=== PATIENT | female | born 1945 | race African-American/Black ===

== ENCOUNTER 2017-07-06 16:46 | Emergency (ER) | payer MEDICARE, MEDICAID ==
[2017-07-06 17:08] LABS: Base Excess -2.8 mEq/L (-2 - +2); pH (venous) 7.31 (7.35-7.45)
[2017-07-06 17:12] LABS: #Basophils 0.2 thou/uL (0.0-0.2); #Eosinphils 0.2 thou/uL (0.0-0.7); #Lymphocytes 1.4 thou/uL (1.20-3.40); #Neutrophils 4.3 thou/uL (1.40-6.50); %Basophils 2.5 % (0.0-1.0); %Eosinophils 2.8 % (0.0-10.0); %Lymphocytes 19.9 % (21.0-51.0); %Monocytes 14.5 % (0.0-10.0); %Neutrophils 60.3 % (42.0-75.0); Hemoglobin 12.3 g/dL (12.0-16.0); Mean Corpuscular HGB CONC 34.4 g/dL (32.0-36.0); Mean Corpuscular Hemoglobin 32.5 pg (27.0-31.0); Mean Corpuscular Volume 94.5 fl (81.0-99.0); Mean Platelet Volume 8.5 fL (7.4-10.4); Platelet Count 183 thou/uL (130-400); RBC Distribution Width 12.2 % (11.5-14.5); Red Blood Cell (RBC) Count 3.78 mill/uL (4.20-5.40); White Blood Cell (WBC) Count 7.1 thou/uL (4.8-10.8)
[2017-07-06 17:23] LABS: ALT (SGPT) 20 U/L (8-55); AST (SGOT) 18 U/L (5-34); Albumin 3.8 g/dL (3.4-4.8); Alkaline Phosphatase 82 U/L (40-150); Anion Gap 12 mmol/L (10-20); BUN (Urea Nitrogen) 11 mg/dL (9.8-20.1); Bilirubin, Total 0.3 mg/dL (0.2-1.2); Calc. Creatinine Clearance 0 mL/min (70-130); Calcium 9.2 mg/dL (7.8-10.44); Carbon Dioxide 26 mmol/L (23-31); Chloride 109 mmol/L (98-107); Estimated GFR-MDRD 53; Globulin 4.1 g/dL (2.4-3.5); Glucose 96 mg/dL (83-110); Potassium 3.4 mmol/L (3.5-5.1); Protein, Total 7.9 g/dL (6.0-8.3); Sodium 144 mmol/L (136-145)
[2017-07-06 17:25] LABS: CKMB 2.4 ng/mL (0-6.6); Troponin I 0.011 ng/mL (< 0.028)
[2017-07-06] MEDS ORDERED: predniSONE 20 MG TAB ONE (17:41)
--- NOTE | 2017-07-06 20:50 | RAD ---
PORTABLE CHEST 07/06/17 Comparison is made with the 04/01/16 study. Mild to moderate cardiomegaly is no different than before. The vessels seem slightly more prominent t torres previously. Given the symptoms of shortness of breath, some very early congestion may be present. There are no effusions or lobar infiltrates. The trachea is midline. IMPRESSION: Possible early congestive change. POS: HOME
== END 2017-07-06 18:10 | disposition home or self-care (01) ==
LOC: BURERS 16:46
DX: J44.9 Chronic obstructive pulmonary disease, unspecified (principal); J06.9 Acute upper respiratory infection, unspecified; I48.91 Unspecified atrial fibrillation; E78.5 Hyperlipidemia, unspecified; K21.9 Gastro-esophageal reflux disease without esophagitis; I11.0 Hypertensive heart disease with heart failure; I50.9 Heart failure, unspecified; I49.9 Cardiac arrhythmia, unspecified; F17.220 Nicotine dependence, chewing tobacco, uncomplicated; Z79.899 Other long term (current) drug therapy
CPT/HCPCS: 71010; 80053; 82553; 82805; 83880; 84484; 85025; 93005; J7506; J7620

== ENCOUNTER 2018-04-18 19:46 | Emergency (ER) | payer MEDICARE, MEDICAID | END 2018-04-18 20:05 | disposition home or self-care (01) | LOC: BURERS 19:46 | DX: J06.9 Acute upper respiratory infection, unspecified (principal); E78.5 Hyperlipidemia, unspecified; I10 Essential (primary) hypertension; J45.909 Unspecified asthma, uncomplicated; I50.9 Heart failure, unspecified; I48.91 Unspecified atrial fibrillation; K21.9 Gastro-esophageal reflux disease without esophagitis; F17.220 Nicotine dependence, chewing tobacco, uncomplicated; Z79.899 Other long term (current) drug therapy | CPT/HCPCS: 99283 ==

== ENCOUNTER 2018-05-05 10:13 | Emergency (ER) | payer MEDICARE, MEDICAID ==
[2018-05-05] MEDS ORDERED: HYDROcodone/Acetaminophen 10/325 mg Tablet ONE (11:23)
--- NOTE | 2018-05-05 16:34 | RAD ---
RIGHT HIP TWO VIEWS: 05/05/18 No fracture or areas of bony destruction was seen. The hip joint space seemed normal and the articula r surfaces are smooth. There is no arthritic change of significance. IMPRESSION: No significant finding. POS: HOME
--- NOTE | 2018-05-05 16:36 | RAD ---
RIGHT SHOULDER THREE VIEWS: 05/05/18 The views were not optimal but the best obtainable at the time. no fracture, dislocation, or AC joint widening was seen. There is some minor bony spurring in the AC joint. There is not much arthritic ch arminda in the glenohumeral joint. IMPRESSION: No acute finding. POS: HOME
== END 2018-05-05 11:00 | disposition home or self-care (01) ==
LOC: BURERS 10:13
DX: S43.401A Unspecified sprain of right shoulder joint, initial encounter (principal); M16.11 Unilateral primary osteoarthritis, right hip; K21.9 Gastro-esophageal reflux disease without esophagitis; X58.XXXA Exposure to other specified factors, initial encounter

== ENCOUNTER 2018-07-01 16:50 | Emergency (ER) | payer MEDICARE, OTHER ==
[2018-07-01] MEDS ORDERED: Ibuprofen 800 MG TAB ONE (17:36)
[2018-07-01 17:48] LABS: Bilirubin Negative (Negative); Clarity Clear (Clear); Glucose, Urine (Dipstick) Negative (Negative); Leukocyte Negative (Negative); Nitrite Negative (Negative); Protein, Urine (Dipstick) Negative (Neg-Trace); Specific Gravity, Urine 1.015 (1.005-1.030); Urobilinogen 0.2 mg/dL (0.2-1.0)
[2018-07-01 17:49] LABS: Blood, Urine Negative (Negative)
--- NOTE | 2018-07-01 22:50 | RAD ---
CHEST TWO VIEWS: 07/01/18 Comparison is made with a 07/08/17 study. The heart is mildly enlarged but no worse than before. There is no congestive change, pleural effusio n, or mediastinal widening. There is no edema. Faint calcification is seen in the aortic arch. The kimberlyn ngs are fully inflated and clear. There is no sign of pneumothorax. No fracture was seen, but signifi cant rib fractures would be easily missed on this study. If suspicion is high, dedicated rib films or CT would be needed to show more subtle injuries. IMPRESSION: No acute findings. POS: HOME
== END 2018-07-01 18:21 | disposition home or self-care (01) ==
LOC: BURERS 16:50
DX: S20.212A Contusion of left front wall of thorax, initial encounter (principal); S50.12XA Contusion of left forearm, initial encounter; J45.909 Unspecified asthma, uncomplicated; K21.9 Gastro-esophageal reflux disease without esophagitis; I10 Essential (primary) hypertension; F17.220 Nicotine dependence, chewing tobacco, uncomplicated; Z79.899 Other long term (current) drug therapy; W01.0XXA Fall on same level from slipping, tripping and stumbling without subsequent striking against object, initial encounter; Y93.01 Activity, walking, marching and hiking
CPT/HCPCS: 71046; 81003

== ENCOUNTER 2018-07-08 11:38 | Emergency (ER) | payer MEDICARE, OTHER ==
--- NOTE | 2018-07-08 16:24 | RAD ---
CHEST TWO VIEWS: 07/08/18 COMPARISON: Comparison is made with the 07/01/18 study. The heart remains normal in size and shows no interval change. the mediastinum has no widening or sh ift. There is a very slight bowing of trachea towards the left at the thoracic inlet but this is true even on 2016 films. No vascular congestion or edema was seen. The right lung base is slightly hazier than it was previously on the PA film, though I could not substantiate a definite infiltrate on the lateral view Subtle rib fractures would be easily missed on this study. IMPRESSION: Exam very similar to the prior study. Very slight increase in basilar haziness which may or may not b e significant. POS: HOME
== END 2018-07-08 13:30 | disposition home or self-care (01) ==
LOC: BURERS 11:38
DX: S22.32XA Fracture of one rib, left side, initial encounter for closed fracture (principal); J45.909 Unspecified asthma, uncomplicated; K21.9 Gastro-esophageal reflux disease without esophagitis; I10 Essential (primary) hypertension; F17.220 Nicotine dependence, chewing tobacco, uncomplicated; Z79.899 Other long term (current) drug therapy; W19.XXXA Unspecified fall, initial encounter
CPT/HCPCS: 71046; 93005; 94799

== ENCOUNTER 2018-11-10 20:17 | Emergency (ER) | payer MEDICARE, OTHER ==
[2018-11-10] MEDS ORDERED: Albuterol Sulfate 1.25 MG/3 ML NEB ONE (20:30)
[2018-11-10] MEDS ORDERED: AMOXicillin 250 MG CAP ONE (20:47)
[2018-11-10] MEDS ORDERED: predniSONE 20 MG TAB ONE (20:47)
--- NOTE | 2018-11-10 21:16 | RAD ---
PORTABLE CHEST: An AP portable film at 2030 shows cardiomegaly comparable to the 07/08/18 film. The upper lobe vessel s do seem mildly congested , however. No large effusions are seen. No lobar consolidations are apprec iated. Slight haziness over the lower lungs is thought to be due to the overlying soft tissues. IMPRESSION: Probable mild congestion. POS: HOME
== END 2018-11-10 21:15 | disposition home or self-care (01) ==
LOC: BURERS 20:17
DX: J06.9 Acute upper respiratory infection, unspecified (principal); J45.909 Unspecified asthma, uncomplicated; K21.9 Gastro-esophageal reflux disease without esophagitis; I10 Essential (primary) hypertension; F17.220 Nicotine dependence, chewing tobacco, uncomplicated; Z79.51 Long term (current) use of inhaled steroids; Z79.899 Other long term (current) drug therapy
CPT/HCPCS: 71045; 94640; J7512; J7620

== ENCOUNTER 2019-10-19 14:58 | Emergency (ER) | payer MEDICARE, MEDICAID ==
[2019-10-19] MEDS ORDERED: HYDROcodone/Acetaminophen 5/325 mg Tablet ONE (15:32)
[2019-10-19] MEDS ORDERED: Bacitracin 1 PK ONE (15:57)
== END 2019-10-19 16:05 | disposition home or self-care (01) ==
LOC: BURERS 14:58
DX: L60.0 Ingrowing nail (principal); K21.9 Gastro-esophageal reflux disease without esophagitis; I10 Essential (primary) hypertension; J45.909 Unspecified asthma, uncomplicated; F17.220 Nicotine dependence, chewing tobacco, uncomplicated; Z79.899 Other long term (current) drug therapy; Z79.51 Long term (current) use of inhaled steroids
CPT/HCPCS: 11750

== ENCOUNTER 2021-02-03 13:59 | Outpatient (CLI) | payer MEDICARE, MEDICAID | END 2021-02-03 14:00 | disposition home or self-care (01) | LOC: BURRAD 13:59 | PROVIDERS: ATTEND Nurse Practitioner Family | DX: M17.0 Bilateral primary osteoarthritis of knee (principal) ==

== ENCOUNTER 2022-02-10 12:07 | Emergency (ER) | payer MEDICARE, OTHER | END 2022-02-10 18:33 | disposition home or self-care (01) | LOC: BURERS 12:07 | DX: U07.1 COVID-19 (principal); I10 Essential (primary) hypertension; K21.9 Gastro-esophageal reflux disease without esophagitis | CPT/HCPCS: U0003; U0005 ==

== ENCOUNTER 2022-06-03 13:33 | Emergency (ER) | payer MEDICARE, OTHER ==
[~2022-06-03 13:33] MED LIST: Fentanyl 100 MCG/2 ML VIAL ONE; PROPOFOL 200 MG/20 ML VIAL ONE; Rocuronium Bromide 10 MG/ML (10ML VIAL) ONE
[2022-06-03 13:45] LABS: #Basophils 0.1 thou/uL (0.0-0.2); #Eosinphils 0.1 thou/uL (0.0-0.7); #Lymphocytes 2.9 thou/uL (1.20-3.40); #Monocytes 0.7 thou/uL (0.11-0.59); #Neutrophils 4.1 thou/uL (1.40-6.50); %Basophils 1.4 % (0.0-1.0); %Eosinophils 1.5 % (0.0-10.0); %Lymphocytes 36.8 % (21.0-51.0); %Monocytes 9.2 % (0.0-10.0); %Neutrophils 51.1 % (42.0-75.0); Hemoglobin 14.8 g/dL (12.0-16.0); Mean Corpuscular HGB CONC 33.2 g/dL (32.0-36.0); Mean Corpuscular Hemoglobin 30.9 pg (27.0-31.0); Mean Corpuscular Volume 93.1 fl (78.0-98.0); Mean Platelet Volume 10.1 fL (7.4-10.4); Platelet Count 214 10x3/uL (130-400); RBC Distribution Width 12.6 % (11.5-14.5); Red Blood Cell (RBC) Count 4.79 mill/uL (4.20-5.40)
[2022-06-03] MEDS ORDERED: niCARdipine 25 MG/10 ML VIAL ONE (13:57)
[2022-06-03 14:05] LABS: PTT 31.4 sec (22.9-36.1); Prothrombin Time 13.7 sec (12.0-14.7)
[2022-06-03 14:06] LABS: ALT (SGPT) 29 U/L (8-55); AST (SGOT) 36 U/L (5-34); Acetaminophen Less than 10.0 mcg/mL (10.0-30.0); Albumin 3.8 g/dL (3.4-4.8); Alcohol Less than 10 mg/dL (Less than 10); Alkaline Phosphatase 89 U/L (40-110); Anion Gap 16 mmol/L (10-20); BUN (Urea Nitrogen) 11 mg/dL (9.8-20.1); Bilirubin, Total 0.4 mg/dL (0.2-1.2); CRP (Inflammatory) 0.67 mg/dL (= or < 0.5); Calc. Creatinine Clearance 0 mL/min (70-130); Calcium 9.5 mg/dL (7.8-10.44); Carbon Dioxide 25 mmol/L (23-31); Chloride 105 mmol/L (98-107); Estimated GFR 56; Glucose 121 mg/dL (83-110); Potassium 3.1 mmol/L (3.5-5.1); Protein, Total 7.8 g/dL (5.8-8.1); Salicylate Less than 8.0 mg/dL (15.0-30.0); Sodium 143 mmol/L (136-145)
== END 2022-06-03 14:25 | disposition short-term general hospital (02) ==
LOC: BURERS 13:33
DX: S01.01XA Laceration without foreign body of scalp, initial encounter (principal); W07.XXXA Fall from chair, initial encounter
CPT/HCPCS: 31500; 51702; 70450; 72125; 80053; 80307; 82550; 83605; 83880; 84443; 84484; 85025; 85610; 85730; 86140; 94760; 96365; 96374; G0390; J2704; J3010